=== PATIENT | male | born 1980 ===

== ENCOUNTER → 2021-12-13 13:38 | Outpatient (CLI) | payer OTHER, SELFPAY ==
--- NOTE | ~2021-12-13 | CT_ITS ---
EXAMINATION: CT lumbar spine wo con DATE: 12/13/2021 13:57 INDICATION: Low back pain. TECHNIQUE: Computed tomography (CT) of the lumbar spine was performed without intravenous contrast. A utomated exposure control and iterative reconstruction technique were employed. The dose-length produ ct was 888.10 mGy-cm. COMPARISON: None FINDINGS: There is 3 mm retrolisthesis of L5 on S1. Vertebral body heights are normal. There is mildl y decreased disc height at L4-L5 and severely decreased disc height at L5-S1. There are are bridging endplate osteophytes at L5-S1. Osseous central spinal canal is developmentally small from L2 to L4. T he following disc levels are specifically discussed: L1-L2: The disc does not extend beyond the endplate margin. There is mild bilateral facet joint osteo arthritis. There is no neural foraminal stenosis. There is no central canal stenosis. L2-L3: The disc is bulging. There is mild bilateral facet joint osteoarthritis. There is mild bilater al neural foraminal stenosis. There is mild central canal stenosis. L3-L4: The disc is bulging. There is mild bilateral facet joint osteoarthritis. There is mild bilater al neural foraminal stenosis. There is mild central canal stenosis. L4-L5: The disc is bulging with superimposed left central extrusion. There is mild bilateral facet gina int osteoarthritis. There is mild bilateral neural foraminal stenosis. There is moderate central gabriel l stenosis with asymmetry stenosis of left lateral recess. L5-S1: The disc is bulging. There is moderate bilateral facet joint osteoarthritis. There is mild rig ht and moderate left neural foraminal stenosis. There is mild central canal stenosis. IMPRESSION: 1. Severe lower lumbar spondylosis. Reviewed, dictated and finalized at location A.
== END ==
DX: M47.896 Other spondylosis, lumbar region (principal)
CPT/HCPCS: 72131